=== PATIENT | female | born 1985 | race Caucasian/White ===

== ENCOUNTER 2018-10-24 11:36 | Emergency (ER) | payer OTHER | END 2018-10-24 12:13 | disposition home or self-care (01) | LOC: FER 11:36 ==

== ENCOUNTER 2018-11-17 06:01 | Emergency (ER) | payer OTHER ==
[2018-11-17 06:08] VITALS: BP 138/86; PULSE 88; TEMP 99.2; BMI 30.7
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
== END 2018-11-17 06:14 | disposition home or self-care (01) ==
LOC: FER 06:01
DX: M79.645 Pain in left finger(s) (principal)
CPT/HCPCS: 99281-25